=== PATIENT | female | born 1950 | race Caucasian/White ===

== ENCOUNTER 2021-04-13 16:38 | Emergency (ER) | payer OTHER ==
[~2021-04-13] VITALS: Ht 170.2 cm; Wt 150.1 kg
[~2021-04-13 16:38] MED LIST: BACTRIM DS TAB1 EACH PO; BACTROBAN22 GM TP; BENICAR HCT 401 EACH PO; MOBIC15 MG PO
[2021-04-13] MEDS ORDERED: VALSARTAN-HCTZ1 EAC4 PO (16:51)
[2021-04-13] MEDS ORDERED: LIPITOR10 MG PO (16:52)
[2021-04-13 18:34] VITALS: BP 105/65
== END 2021-04-13 18:34 | disposition home or self-care (01) ==
LOC: M.ERS 16:38
DX: S02.2XXA Fracture of nasal bones, initial encounter for closed fracture (principal); S09.90XA Unspecified injury of head, initial encounter; I10 Essential (primary) hypertension; M19.90 Unspecified osteoarthritis, unspecified site; Z90.49 Acquired absence of other specified parts of digestive tract; Z79.899 Other long term (current) drug therapy; W01.0XXA Fall on same level from slipping, tripping and stumbling without subsequent striking against object, initial encounter; Y93.89 Activity, other specified; Y92.89 Other specified places as the place of occurrence of the external cause; Y99.8 Other external cause status